=== PATIENT | female | born 1990 | race Caucasian/White ===

== ENCOUNTER 2021-08-03 15:55 | Inpatient (IN) | payer MEDICAID, SELFPAY ==
[2021-08-03 16:10] VITALS: BP 114/75; TEMP 37.1
[2021-08-03 16:15] VITALS: PULSE 109; O2SAT 97
[2021-08-03] MEDS: Lactated Ringers 1,000 ML 200 ML IV (16:30)
[2021-08-03] MEDS: Oxytocin 30 units/NS 500 ml 30 UNITS/500 ML IV.SOLN 334 UNITS IV (16:40)
[2021-08-03] MEDS: Ibuprofen 600 MG Tablet PO (18:07)
[2021-08-03 19:30] VITALS: BP 103/63; PULSE 79; RESP 16; TEMP 36.7
[2021-08-03 20:54] LABS: Absolute Lymphocyte Count 1.81 X10^3/uL (0.83-4.51); Absolute Neutrophil Count 8.2 X10^3/uL (2.0-7.7); Basophil# 0.02 X10^3/uL; Basophil% 0.2 % (0-1); Eosinophil# 0.01 X10^3/uL; Eosinophils% 0.1 % (0-5); Hematocrit 39.1 % (37-47); Hemoglobin 12.9 g/dL (12.0-15.0); Lymphocyte # 1.81 X10^3/ul (0.83-4.51); Mean Corpuscular Hgb 29.2 pg (27.0-32.0); Mean Corpuscular Volume 88.5 fL (81-99); Mean Platelet Vol. 12.6 fl (6.2-12.0); Monocyte# 0.58 X10^3/uL; Monocyte% 5.5 % (0-10); NRBC Flagged by Analyzer 0 % (0-5); Neutrophil # 8.16 X10^3/uL (2.7-7.7); Neutrophil % 76.8 % (47-70); Platelet Count 183 K/mm3 (150-450); RBC Distribution Width CV 13.3 % (11.6-14.6); RBC Distribution Width SD 43.3 fl (35.1-43.9); Red Blood Count 4.42 M/mm3 (4.2-5.4); White Blood Count 10.6 K/mm3 (4.4-11.0)
[2021-08-04 00:25] VITALS: BP 104/63; PULSE 80; RESP 16; TEMP 36.6; O2SAT 95
[2021-08-04] MEDS: Ibuprofen 600 MG Tablet PO ×2 (00:31→11:21)
[2021-08-04 02:29] LABS: Amphetamine Urine VISTA NEGATIVE (<1000 ng/mL); Barbiturate Urine VISTA NEGATIVE (< 200 ng/mL); Benzodiazepine Urine VISTA NEGATIVE (< 200 ng/mL); Cocaine Urine VISTA NEGATIVE (< 300 ng/mL); Ecstacy Urine VISTA NEGATIVE (< 500 ng/mL); Methadone Urine VISTA NEGATIVE (< 300 ng/mL); PCP Urine VISTA NEGATIVE (< 25 ng/mL); THC Urine VISTA POSITIVE (< 50 ng/mL); Vista UDS pH Range 5
[2021-08-04 04:26] VITALS: BP 100/68; PULSE 75; RESP 16; TEMP 36.4; O2SAT 95
[2021-08-04] MEDS: Acetaminophen 500 MG Tablet 1000 MG PO ×2 (04:28→12:30)
[2021-08-04 08:13] LABS: Group B Strep DNA By PCR Negative (Negative); Internal Control PASS; Probe Check PASS; Specimen Processing Control PASS
[2021-08-04 08:55] VITALS: BP 111/71; PULSE 75; RESP 16; TEMP 36.5; O2SAT 100
--- NOTE | 2021-08-04 09:35 | PCM.PN.OB ---
Subjective Subjective day 1 status post . Lochia minimal. Bottlefeeding. No cough that is new, no fevers or chills, no rhinorrhea. Objective Data Objective Data Vital Signs: Vital Signs Temp Pulse Resp BP Pulse Ox 97.6 F L 75 16 100/68 95 08/04/21 04:26 08/04/21 04:26 08/04/21 04:26 08/04/21 04:26 08/04/21 04:26 Oxygen Delivery Method Room Air Intake & Output: Intake and Output for Last 24 Hours 08/02/21 08/03/21 08/04/21 23:59 23:59 23:59 Output Total 100 / 100 350 / 350 Balance -100 / -100 -350 / -350 Lab / Micro Data Result Diagrams: 08/03/21 16:30 Labs: Laboratory Results - last 24 hr 08/03/21 16:25: Group B Strep DNA Negative, Specimen Comment Not Reportable 08/03/21 16:30: WBC 10.6, RBC 4.42, Hgb 12.9, Hct 39.1, MCV 88.5, MCH 29.2, MCHC 33.0, RDW Std Deviation 43.3, RDW Coeff of Enma 13.3, Plt Count 183, MPV 12.6 H, Immature Gran % (Auto) 0.400, Neut % (Auto) 76.8 H, Lymph % (Auto) 17.0 L, [place] % (Auto) 5.5, Eos % (Auto) 0.1, Baso % (Auto) 0.2, Absolute Neuts (auto) 8.2 H, Absolute Lymphs (auto) 1.81, Nucleated RBC % 0 08/03/21 16:30: Blood Type Cancelled, A1 Antigen Typing Cancelled, Rho(D) Type Cancelled, Antibody Screen Cancelled 08/03/21 16:30: Blood Type A POSITIVE, Antibody Screen NEGATIVE 08/03/21 16:45: Urine Opiates Screen NEGATIVE, Urine Methadone Screen NEGATIVE, Ur Barbiturates Screen NEGATIVE, Ur Phencyclidine Scrn NEGATIVE, Ur Amphetamines Screen NEGATIVE, U Methamphetamin-MDMA NEGATIVE, U Benzodiazepines Scrn NEGATIVE, Urine Cocaine Screen NEGATIVE, U Cannabinoids Screen POSITIVE H, Ur Drug Screen Comment 08/03/21 17:35: COVID-19 ([facility]) Detected Micro: Microbiology 08/03/21 16:30 Nasal Secretion SARS-CoV-2 Antigen (Rapid) - Final SARS-CoV-2 (COVID 19) Physical Exam Const alert, oriented x3 and no apparent distress HEENT normocephalic Head and Scalp: atraumatic Neck full ROM Resp normal respiratory effort and clear to auscultation bilaterally Cardio regular rate and regular rhythm GI normal to inspection, nondistended, normoactive bowel sounds GI Narrative: Uterus 2 cm below umbilicus Back/Spine normal ROM Extremity normal to inspection Extremity Narrative: Minimal pedal edema Neuro no focal motor deficits and no sensory deficits noted Psych mental status grossly normal and affect normal Assessment & Plan (1) Vaginal delivery: PLAN: day 1 status post . Bottlefeeding. Covid positive, asymptomatic. Discussed masking around others including children and . Discussed quarantine. Patient to call physician for symptoms. Patient sees [facility] at [facility]/[place]. She is to follow-up with them in 2 weeks. (2) COVID-19 affecting childbirth:
--- NOTE | 2021-08-04 09:37 | PCM.DC ---
Discharge Instructions Diet Discharge Diet: No restrictions Activity Discharge Activity: Return to Normal Activity and May Shower May resume sexual activity in: 4-6 weeks Weight Bearing Status: Weight bearing as tolerated Lifting Restrictions: No greater than 25 pounds Dressing / Incision Call your doctor if you observe: Fever of 101 or Higher, Change in Color, Inability to urinate, Using more than 1 pad per hour, Shortness of breath, Dizziness, Swelling in the ankles, Chest pain and Calf discomfort Follow Up Care Please Follow Up With: Samara Dewitt, When: Follow up with [facility]DC[facility] DIRECTOR in 2 weeks. Can make follow up telehealth with [place] [facility] in 2 weeks, 6w PP. Test Results: Test results from this visit will be discussed in further detail at your follow-up appointment, if applicable. Discharge Plan Admission Admit Date/Time: 08/03/21 15:55 Primary Reason for Your Visit: Labor Attending Provider: Samara Dewitt Discharge Orders/Prescriptions Prescriptions: Discontinued hydrocodone-acetaminophen 1 TABLET tablet 1 - 2 tab PO Q4H PRN PRN (Reason: Pain) Qty: 20 RF: 0 naproxen 500 MG tablet 500 mg PO BID Qty: 20 RF: 0 Referrals / Follow Up: NIKO MCLAIN [Other] Disposition Disposition (needs filled in before D/C Order can be placed): Home, Self Care
[2021-08-04 12:23] VITALS: BP 95/61; PULSE 93; RESP 18; TEMP 36.3; O2SAT 95
[2021-08-04] MEDS: MedroxyPROGESTERone 150 MG/ML Syringe IM (15:12)
[2021-08-04 15:57] VITALS: BMI 35.2
[2021-08-04 16:55] VITALS: BP 110/75; PULSE 76; RESP 16; TEMP 36.3; O2SAT 95
--- NOTE | 2021-08-05 11:39 | CASEMGMT ---
Social Work *Prior social media assistant documentation is under paper chart due to system being down at time of intervention.* Telephone call to [facility] services due to urine being positive for THC. farm worker, Megan. Referral made due to substance abuse. This social media assistant communicating that Meconium is pending. Referral made to [facility], per conversation with mother of baby. Cara Raymond WEB SUPPORT ENGINEER, RADIOLOGICAL TECHNICIAN-S
== END 2021-08-04 17:45 | disposition home or self-care (01) | DRG 137 ==
PROVIDERS: Admitting Provider Student in an Organized Health Care Education/Training Program; Visit Provider Student in an Organized Health Care Education/Training Program
DX: U07.1 COVID-19 (principal); O98.513 Other viral diseases complicating pregnancy, third trimester; F17.200 Nicotine dependence, unspecified, uncomplicated; Z37.0 Single live birth; Z3A.38 38 weeks gestation of pregnancy; O99.334 Smoking (tobacco) complicating childbirth
CPT/HCPCS: 59050; 80307; 85025; 86850; 86900; 86901; 87081; 87426; 87635; 87653; 99218; J7120; G0378; U0003; U0005